=== PATIENT | female | born 1985 | race Caucasian/White ===

== ENCOUNTER 2019-09-20 11:00 | Inpatient (IN) ==
[~2019-09-20 11:00] MED LIST: *HR* Nalbuphine 10 MG/ML AMPUL IVP PRN; Famotidine 20 MG/2 ML VIAL IVP PRN; Metoclopramide 10 MG/2 ML VIAL IVP PRN; Naloxone 0.4 MG/ML INJ IVP PRN
[2019-09-20] MEDS ORDERED: Lidocaine 1% 20 ML MDV INFILT PRN (11:01)
[2019-09-20] MEDS ORDERED: Azithromycin 500 MG in 0.9 % Sodium Chloride 250 ML IVPB PRN (11:01)
[2019-09-20] MEDS ORDERED: Penicillin G Potassium 5,000,000 UNIT in 0.9 % Sodium Chloride Mini Bag 100 ML IVPB ONE (11:01)
[2019-09-20] MEDS ORDERED: miSOPROStoL 25 MCG TABLET PO PRN (11:12)
[2019-09-20] MEDS: Ringers Solution, Lactated 1,000 ML IVC SCH ×2 (12:10→18:23)
[2019-09-20 12:36] LABS: Basophils % 0.2 %; Eosinophils # 0.1 K/mcL (0.0-0.6); Eosinophils % 0.8 %; Hematocrit 34.8 % (35.3-44.9); Immature Granulocytes % 0.5 % (0-4); Lymphocytes # 1.2 K/mcL (0.6-4.6); Lymphocytes % 13.6 %; Mean Corpuscular HGB Conc 31.6 g/dL (31.6-35.5); Mean Corpuscular Hemoglobin 26.9 pg (28.0-33.3); Mean Corpuscular Volume 85.1 fL (83.0-100.0); Mean Platelet Volume 10.5 fL (9.4-12.4); Monocytes # 0.6 K/mcL (0.0-1.3); Neutrophils # 6.7 K/mcL (1.6-8.9); Platelet Count 233 K/mcL (140-400); Red Blood Count 4.09 M/mcL (3.82-4.97); Red Cell Distribution Width 17.5 % (11.5-14.5); Segmented Neutrophils % 77.9 %; White Blood Count 8.6 K/mcL (4.3-11.1)
[2019-09-20 12:40] LABS: Amphetamine Screen,Urine Negative ng/mL (Cutoff=1000); Barbiturate Screen,Urine Negative ng/mL (Cutoff=200); Benzodiazepines Screen,Urine Negative ng/mL (Cutoff=200); Cannabinoid Screen,Urine Negative ng/mL (Cutoff = 50); Cocaine Screen,Urine Negative ng/mL (Cutoff= 300); Opiate Screen,Urine Negative ng/mL (Cutoff=300); Phencyclidine Screen,Urine Negative ng/mL (Cutoff=25)
[2019-09-20] MEDS ORDERED: Levonorgestrel 52 MG IUD IY ONE ×2 (14:10→16:26)
[2019-09-20] MEDS ORDERED: Ondansetron 4 MG/2 ML VIAL IVP PRN (14:14)
[2019-09-20] MEDS: Penicillin G Potassium 2,500,000 UNIT in 0.9 % Sodium Chloride 100 ML IVPB SCH ×2 (16:13→20:36)
[2019-09-20] MEDS ORDERED: Oxytocin 20 units/ LR 1000 mL 20 UNIT/1,000 ML BAG IVC SCH (16:45)
[2019-09-20] MEDS ORDERED: Epidural Premix (fent/bupiv) 110 ML EP SCH (16:45)
[2019-09-20] MEDS ORDERED: *HR* FentaNYL (PF) 100 MCG/2 ML VIAL ONE (19:06)
[2019-09-20] MEDS ORDERED: Bupivacaine-MPF 0.25% 10 ML VIAL ONE (19:06)
[2019-09-21] MEDS ORDERED: Lanolin 7 G OINT...G. TP PRN (01:44)
[2019-09-21] MEDS ORDERED: Oxytocin 20 units/ LR 1000 mL 20 UNIT/1,000 ML BAG IVC SCH (01:44)
[2019-09-21] MEDS ORDERED: Ibuprofen 600 MG TABLET PO PRN (01:44)
[2019-09-21] MEDS ORDERED: Acetaminophen 325 MG TABLET PO PRN (01:44)
[2019-09-21] MEDS ORDERED: Benzocaine/Menthol 56 GM AEROSOL SPRAY TP PRN (01:44)
[2019-09-21] MEDS: Prenatal Vit/FA 1 EACH TABLET PO SCH (09:18)
[2019-09-22] MEDS: Prenatal Vit/FA 1 EACH TABLET PO SCH (07:35)
[2019-09-22 07:50] VITALS: BP 113/80
== END 2019-09-22 11:40 | disposition home or self-care (01) | DRG 560 ==
LOC: 1NENULAB → 1NENUOBS 09-21 01:41
PROVIDERS: ADMIT Registered Nurse; ATTEND Registered Nurse